=== PATIENT | female | born 1960 | race Caucasian/White ===

== ENCOUNTER 2016-12-27 07:53 | Emergency (ER) | payer OTHER ==
[~2016-12-27] VITALS: Ht 165.1 cm; Wt 59.1 kg
[2016-12-27] MEDS ORDERED: AMLO1TAB51 PO (08:23)
[2016-12-27] MEDS ORDERED: METHOCARBAMOL 500 MG TABLET PO ONE (10:30)
[2016-12-27] MEDS ORDERED: IBUPROFEN 600 MG TABLET PO ONE (10:30)
[2016-12-27 11:48] VITALS: BP 116/70
== END 2016-12-27 12:56 | disposition home or self-care (01) ==
LOC: EMS 07:57
DX: S20.212A Contusion of left front wall of thorax, initial encounter (principal); S70.01XA Contusion of right hip, initial encounter; I10 Essential (primary) hypertension; V49.40XA Driver injured in collision with unspecified motor vehicles in traffic accident, initial encounter; Y93.89 Activity, other specified; Y92.89 Other specified places as the place of occurrence of the external cause; Y99.8 Other external cause status
CPT/HCPCS: 99283